=== PATIENT | male | born 1960 | race Caucasian/White ===

== ENCOUNTER 2016-07-11 14:10 | Emergency (ER) | payer OTHER ==
[2016-07-11] MEDS ORDERED: ASPIRIN PO STA (14:16)
[2016-07-11] MEDS ORDERED: G.I. COCKTAIL PO ONE (14:29)
[2016-07-11 14:44] LABS: MANUAL DIFF NEEDED? NO
[2016-07-11 14:45] LABS: BASO% 0.1 % (0.0-0.8); EOS# 0.07 X1000 (0.0-0.7); HEMATOCRIT 42.1 % (42.0-52.0); HEMOGLOBIN 14.7 g/dL (14.0-18.0); IMM GRAN# 0.01 X1000 (0.0-0.04); IMM GRAN% 0.1 % (0.0-0.5); LYMPH# 1.05 X1000 (1.2-3.4); LYMPH% 14.6 % (20.5-51.1); MCH 31.1 PG (27-31); MCHC 34.9 g/dL (33-37); MCV 89.2 FL (81-99); MONO# 0.42 X1000 (0.11-0.59); MONO% 5.8 % (1.7-9.3); MPV 10.2 FL (7.4-10.4); NEUT% 78.4 % (42.2-75.2); PLT 145 X1000 (130-400); RBC 4.72 XMIL (4.7-6.1)
[2016-07-11 14:59] LABS: INR 0.91 (0.86-1.15); PROTIME 12.6 Seconds (12.1-15.5); PTT PL 25.7 Seconds (22.6-43.9)
--- NOTE | 2016-07-11 15:01 | EKG Report ---
Test Performed on : 07/11/2016 2:26:49 PM Test Reason : CP Blood Pressure : / mmHG Vent. Rate : 095 BPM Atrial Rate : 095 BPM P-R Int : 144 ms QRS Dur : 098 ms QT Int : 360 ms P-R-T Axes : 077 100 076 degrees QTc Int : 452 ms Normal sinus rhythm. Biatrial enlargement Pulmonary disease pattern Incomplete right bundle branch block Right ventricular hypertrophy Nonspecific ST abnormality Abnormal ECG When compared with ECG of 16-MAY-2016 22:46, QRS axis shifted right Unconfirmed Result
--- NOTE | 2016-07-11 15:02 | ED EKG INTERP ---
EKG Interpretation - EKG Time of EKG reading by physician:: 14:26 EKG Read and Signed by:: Mike Lopez EKG Interpretation (*Must complete 3 of following elements*): Normal Rate: 95 Rhythm: normal sinus rhythm QRS: LVH
[2016-07-11 15:07] LABS: AGAP 11; ALBUMIN 3.9 g/dL (3.5-5.0); ALKALINE PHOSPHATASE 71 U/L (32-122); BUN 16 mg/dL (8-22); CALCIUM 8.8 mg/dL (8.8-10.2); CHLORIDE 96 mmol/L (98-107); CK PROFILE 73 U/L (24-204); COSMO 268; GOT 22 U/L (10-34); GPT 21 U/L (10-44); MAGNESIUM 1.5 mg/dL (1.5-2.7); POTASSIUM 3.4 mmol/L (3.5-5.1); SODIUM 132 mmol/L (136-145); TCO2 25 mmol/L (25-35); TOTAL PROTEIN 6.4 g/dL (6.3-8.3)
--- NOTE | 2016-07-11 16:30 | PROVIDER DOCUMENTATION ---
HPI-Chest Pain - General Source: patient - History of Present Illness-CP Location: reports: central Onset/Duration: 4 days ago Timing: still present <Charisma Chavez - Last Filed: 07/11/16 16:26> <Zackery Bean - Last Filed: 07/11/16 18:34> - General Chief Complaint: Chest Pain Stated Complaint: CHEST PAIN Time Seen by Provider: 07/11/16 14:28 Allergies/Adverse Reactions: Patient Allergies Allergy/AdvReac Type Severity Reaction Status Date / Time Penicillins Allergy Severe HIVES Verified 07/11/16 14:20 morphine Allergy Unknown Verified 07/11/16 14:20 Home Medications: Home Medication List Medication Instructions Recorded Confirmed Last Taken Type Alprazolam [Xanax] 1 mg PO BID 07/14/13 02/13/15 10/19/14 History 1mg Aspirin [Ecotrin] 325 mg PO DAILY 07/14/13 02/13/15 10/19/14 History 325mg Buspirone [Buspar] 10 mg PO BID 07/14/13 02/13/15 10/19/14 History 10mg Clopidogrel Bisulfate [Clopidogrel] 75 mg PO DAILY 07/14/13 02/13/15 10/19/14 History 75mg EZETIMIBE/SIMVAstatin [Vytorin 1 each PO QHS 07/14/13 02/13/15 10/18/14 History 10/40 mg] 10/40mg Fexofenadine HCl 180 mg PO DAILY 07/14/13 02/13/15 10/19/14 History 180mg Magnesium Chloride [Magnesium Dr] 64 mg PO BID 07/14/13 02/13/15 10/19/14 History 64mg Multivitamin [Multi-Vitamin Daily] 1 each PO BID 07/14/13 02/13/15 10/19/14 History 1 tab Potassium Chloride 20 meq PO BID 07/14/13 12/18/15 10/19/14 History 20meq Prednisone 10 mg PO DAILY 07/14/13 02/13/15 10/19/14 History 10mg Sirolimus [Rapamune] 1 mg PO DAILY 07/14/13 02/13/15 10/19/14 History 1mg Sulfamethoxazole/Trimethoprim 1 tab PO DAILY 07/14/13 02/13/15 10/19/14 History [Bactrim Ds Tablet] 400/80 Tacrolimus 1 mg PO DAILY 07/14/13 02/13/15 10/19/14 History 1mg Ubidecarenone/Vitamin E Mixed 1 tab PO DAILY 07/14/13 02/13/15 10/19/14 History [Coq10 Sg 100 Softgel] 1 tab Valsartan/Hydrochlorothiazide 1 each PO DAILY 07/14/13 12/18/15 10/19/14 History [Valsartan-Hctz 160-25 mg Tab] 160/25mg Insulin Lispro [Humalog] See Protocol SUBQ PRN PRN 10/19/14 02/13/15 10/19/14 History Hydrocodone/Acetaminophen [[place] 1 each PO Q6H PRN PRN #28 tablet 10/20/1402/13 Unknown Rx 7.5-325 Tablet] Cyclobenzaprine [Flexeril] 10 mg PO QHS PRN #30 tablet 02/13/15 Unknown Rx Cyclobenzaprine [Flexeril] 10 mg PO TID PRN #20 tablet 07/11/16 Unknown Rx - History of Present Illness-CP Nature of Presenting Problem: 55 year old male presents to the ER with complaint of SOB and chest pain x 4 days. Pt had a heart and lung transplant in 1995. Pt states that he tires easily upon exertion. States he is due to have a heart cath in August. (Charisma Chavez) Review of Systems - Adult - REVIEW OF SYSTEMS - ADULT Constitutional: denies: chills, fever Eyes: reports: no symptoms reported Ears, Nose, Mouth & Throat: reports: no symptoms reported Cardiovascular: reports: chest pain. denies: palpitations Respiratory: reports: shortness of breath. denies: cough Gastrointestinal: reports: no symptoms reported Genitourinary: reports: no symptoms reported Musculoskeletal: reports: no symptoms reported Integumentary: reports: no symptoms reported Neurological: reports: no symptoms reported Psychiatric: reports: no symptoms reported Endocrine: reports: no symptoms reported Hematologic/Lymphatic: reports: no symptoms reported Allergic/Immunologic: reports: no symptoms reported All Other Systems: Reviewed and Negative <Charisma Chavez - Last Filed: 07/11/16 16:26> Past History - Adult - PAST MEDICAL HISTORY-ADULT Review of Records: reports: Nursing Assessment Review, Medications Reviewed Cardiovascular: reports: cardiac disease, CAD, HTN Respiratory: reports: COPD Endocrine/Immune: reports: Diabetes, other (heart lung transplant 17 years ago) - PRIOR SURGERIES/PROCEDURES Surgical/Procedure History: reports: other (heart and lung transplant) - IMMUNIZATION STATUS Childhood Immunizations: See Nurse Assessment Flu Vaccine: See Nurse Assessment - FAMILY HISTORY Family History: reviewed, not pertinent <Charisma Chavez - Last Filed: 07/11/16 16:26> Physical Exam-General - CONSTITUTIONAL General Appearance: alert, no apparent distress - EYES Eyes: PERRL/EOMI, pink conjunctivae - HEAD, EARS, NOSE, MOUTH & THROAT HENMT: normocephalic/atraumatic, moist mucous membranes - NECK Neck: supple, normal inspection - RESPIRATORY Respiratory: lungs clear, normal breath sounds - CARDIOVASCULAR Cardiovascular: normal peripheral pulses, regular rate, rhythm - MUSCULOSKELETAL Back Exam: no CVA tenderness, no vertebral tenderness Extremity: normal gait, normal inspection - SKIN Integumentary: normal color, warm/dry - NEUROLOGIC Neurologic: grossly normal, no motor/sensory deficits - PSYCHIATRIC Psych/Mental Status: normal mood/affect, normal thought content, normal thought process, oriented x 3 <Charisma Chavez - Last Filed: 07/11/16 16:26> Progress <Charisma Chavez - Last Filed: 07/11/16 16:26> - XRAY 1 XRAY: Bilateral XRAY Study: Chest XRAY Interpretation: BRONCHIOLITIS <Zackery Bean - Last Filed: 07/11/16 18:34> - PLAN OF CARE/RESULTS Progress/Plan/Lab Results: Laboratory Tests 07/11/16 07/11/16 07/11/16 14:40 14:40 14:40 WBC RBC Hgb Hct MCV MCH MCHC RDW Std Deviation Plt Count MPV Immature Gran % (Auto) Neut % (Auto) Lymph % (Auto) Williamson % (Auto) Eos % (Auto) Baso % (Auto) Immature Gran # (Auto) Neut # (Auto) Lymph # (Auto) Williamson # (Auto) Eos # (Auto) Baso # (Auto) PT INR APTT (Factor Assay) Sodium 132 L Potassium 3.4 L Chloride 96 L Carbon Dioxide 25 Anion Gap 11 BUN 16 Creatinine 1.1 Estimated GFR/1.73 m2 > 60 BUN/Creatinine Ratio 15 Glucose 137 H Calculated Osmolality 268 Calcium 8.8 Magnesium 1.5 Total Bilirubin 0.30 AST 22 ALT 21 Alkaline Phosphatase 71 Creatine Kinase 73 Troponin T < 0.010 Nkp-S-Ygslvmymino Pept 142 H Total Protein 6.4 Albumin 3.9 Globulin 3.0 Albumin/Globulin Ratio 2.0 07/11/16 07/11/16 07/11/16 14:40 14:40 16:55 WBC 7.18 RBC 4.72 Hgb 14.7 Hct 42.1 MCV 89.2 MCH 31.1 H MCHC 34.9 RDW Std Deviation 13.0 Plt Count 145 MPV 10.2 Immature Gran % (Auto) 0.1 Neut % (Auto) 78.4 H Lymph % (Auto) 14.6 L Williamson % (Auto) 5.8 Eos % (Auto) 1.0 Baso % (Auto) 0.1 Immature Gran # (Auto) 0.01 Neut # (Auto) 5.62 Lymph # (Auto) 1.05 L Williamson # (Auto) 0.42 Eos # (Auto) 0.07 Baso # (Auto) 0.01 PT 12.6 INR 0.91 APTT (Factor Assay) 25.7 Sodium Potassium Chloride Carbon Dioxide Anion Gap BUN Creatinine Estimated GFR/1.73 m2 BUN/Creatinine Ratio Glucose Calculated Osmolality Calcium Magnesium Total Bilirubin AST ALT Alkaline Phosphatase Creatine Kinase 72 Troponin T Zlx-V-Eugtxsezycs Pept Total Protein Albumin Globulin Albumin/Globulin Ratio 07/11/16 16:55 WBC RBC Hgb Hct MCV MCH MCHC RDW Std Deviation Plt Count MPV Immature Gran % (Auto) Neut % (Auto) Lymph % (Auto) Williamson % (Auto) Eos % (Auto) Baso % (Auto) Immature Gran # (Auto) Neut # (Auto) Lymph # (Auto) Williamson # (Auto) Eos # (Auto) Baso # (Auto) PT INR APTT (Factor Assay) Sodium Potassium Chloride Carbon Dioxide Anion Gap BUN Creatinine Estimated GFR/1.73 m2 BUN/Creatinine Ratio Glucose Calculated Osmolality Calcium Magnesium Total Bilirubin AST ALT Alkaline Phosphatase Creatine Kinase Troponin T < 0.010 Oss-B-Gildmxtsapw Pept Total Protein Albumin Globulin Albumin/Globulin Ratio Orders Category Date Time Status Cardiac Monitoring DIRECTED Care 07/11/16 14:16 Active Oxygen Therapy- ED Nursing DIRECTED Care 07/11/16 14:16 Active CHEST-2 VIEWS [RAD] Stat Exams 07/11/16 14:16 Completed CBC WITH ELECTRONIC DIFF [HEME] Stat Lab 07/11/16 14:40 Completed CK PROFILE [SP CHEM] Stat Lab 07/11/16 14:40 Completed CK PROFILE [SP CHEM] Stat Lab 07/11/16 16:55 Completed COMPREHENSIVE METABOLIC PANEL [CHEM] Stat Lab 07/11/16 14:40 Completed MAGNESIUM [CHEM] Stat Lab 07/11/16 14:40 Completed PRO B-NATRIURETIC PEPTIDE Stat Lab 07/11/16 14:40 Completed PROTIME WITH INR PL [COAG] Stat Lab 07/11/16 14:[address] [COAG] Stat Lab 07/11/16 14:40 Completed TROPONIN T Stat Lab 07/11/16 14:40 Completed TROPONIN T Stat Lab 07/11/16 16:55 Completed Aspirin Med 07/11/16 14:16 Discontinued 325 mg PO STAT STA Lido/Uribe Alk/Al&mg Hydrox [G.i. Cocktail] Med 07/11/16 14:29 Discontinued 30 ml PO NOW ONE EKG [EKG] Stat Ther 07/11/16 14:16 Draft EKG [EKG] Stat Ther 07/11/16 16:09 Draft Vital Signs - 24 hr 07/11/16 07/11/16 07/11/16 14:15 15:47 15:56 Temperature 98 F Pulse Rate 98 H 88 88 Respiratory 18 10 L 17 Rate Blood Pressure 162/100 127/80 O2 Sat by Pulse 98 97 Oximetry 07/11/16 07/11/16 07/11/16 16:00 16:15 17:00 Temperature Pulse Rate 83 89 78 Respiratory 12 19 27 H Rate Blood Pressure 147/96 134/88 141/84 O2 Sat by Pulse 96 96 100 Oximetry 07/11/16 07/11/16 07/11/16 17:15 17:30 17:53 Temperature Pulse Rate 76 74 90 Respiratory 21 20 15 Rate Blood Pressure 139/84 127/85 145/90 O2 Sat by Pulse 98 98 Oximetry (Zackery Bean) Departure <Charisma Chavez - Last Filed: 07/11/16 16:26> - Departure Time of Disposition Order: 18:33 Certified Medical Emergency: Emergent <Zackery Bean - Last Filed: 07/11/16 18:34> - Departure DIAGNOSIS: Bronchiolitis Disposition: HOME 01 Condition: Stable Additional Instructions: ED Follow Up Instructions: You have been treated by a care provider in the Emergency Department. These instructions are being provided to you so you can have an understanding of how to care for yourself upon discharge. Upon discharge from the Emergency Department, you are responsible for making arrangements for follow-up care by a physician of your choice. Take all prescribed medications as directed. Return to the Emergency Department immediately for any new or worsening symptoms. You may call the Physician Referral phone number at [phone] to obtain a list of Physicians who are taking new patients. Prescriptions: Cyclobenzaprine [Flexeril] 10 mg PO TID PRN #20 tablet PRN Reason: Spasms Attestation - Scribe Verification/Attestation Scribe:: Charisma Chavez Acting as Scribe for:: Mike Lopez Scribe documention review:: This chart was documented by a scribe and accurately reflects the service the provider performed and the decisions made by the provider. <Charisma Chavez - Last Filed: 07/11/16 16:26> - Scribe Verification/Attestation Scribe:: Zackery Bean Acting as Scribe for:: Chi Virgen Scribe documention review:: This chart was documented by a scribe and accurately reflects the service the provider performed and the decisions made by the provider. <Zackery Bean - Last Filed: 07/11/16 18:34> Physician Attestation
--- NOTE | 2016-07-11 16:55 | ED EKG INTERP ---
EKG Interpretation - EKG Time of EKG reading by physician:: 16:16 EKG Read and Signed by:: Mike Lopez EKG Interpretation (*Must complete 3 of following elements*): Abnormal Rate: 81 Rhythm: normal sinus rhythm [place]: normal
--- NOTE | 2016-07-11 17:03 | Diag Imaging Result Document ---
PROCEDURE NAME: CHEST-2 VIEWS - 07/11/2016 ONE-VIEW OF THE CHEST: FINDINGS: No comparison exam. Heart size is normal. There are ill-defined bilateral perihilar infiltrates. These may relate to bronchiolitis and/or bronchopneumonia. There is no pleural effusion or pneumothorax identified. IMPRESSION: Ill-defined bilateral perihilar infiltrates which may relate to bronchiolitis and/or bronchopneumonia.
--- NOTE | 2016-07-11 17:34 | EKG Report ---
Test Performed on : 07/11/2016 4:16:43 PM Test Reason : CP Blood Pressure : / mmHG Vent. Rate : 081 BPM Atrial Rate : 081 BPM P-R Int : 154 ms QRS Dur : 102 ms QT Int : 374 ms P-R-T Axes : 069 077 067 degrees QTc Int : 434 ms Normal sinus rhythm. Possible Left atrial enlargement Incomplete right bundle branch block Possible Right ventricular hypertrophy Abnormal ECG When compared with ECG of 11-JUL-2016 14:26, (Unconfirmed) No significant change was found Unconfirmed Result
[2016-07-11 18:32] VITALS: BP 149/92
== END 2016-07-11 18:40 | disposition home or self-care (01) ==
LOC: P.ED 14:10
DX: J21.9 Acute bronchiolitis, unspecified (principal); R07.89 Other chest pain; R06.02 Shortness of breath; I25.10 Atherosclerotic heart disease of native coronary artery without angina pectoris; I10 Essential (primary) hypertension; J44.9 Chronic obstructive pulmonary disease, unspecified; E11.9 Type 2 diabetes mellitus without complications; Z94.3 Heart and lungs transplant status; Z79.82 Long term (current) use of aspirin; Z79.899 Other long term (current) drug therapy
CPT/HCPCS: 71020; 80053; 82550; 83735; 83880; 84484; 85025; 85610; 85730; 93005; 99284